=== PATIENT | female | born 1990 | race Caucasian/White ===

== ENCOUNTER 2018-12-01 13:00 | Inpatient (IN) ==
[2018-12-08] MEDS ORDERED: LR 1,000 ML ONE (09:49)
[2018-12-08] MEDS ORDERED: VALIUM ONE (10:11)
[2018-12-08] MEDS ORDERED: PEPCID ONE (10:11)
[2018-12-08] MEDS ORDERED: REGLAN ONE (10:11)
[2018-12-08] MEDS ORDERED: ZOFRAN ONE ×2 (10:12→14:08)
[2018-12-08] MEDS ORDERED: DIPRIVAN 1% ONE (12:59)
[2018-12-08] MEDS ORDERED: FENTANYL ONE (13:00)
[2018-12-08] MEDS ORDERED: XYLOCAINE-MPF 2% ONE (13:06)
[2018-12-08] MEDS ORDERED: VANCOMYCIN ONE (13:08)
[2018-12-08] MEDS ORDERED: DECADRON ONE (14:08)
[2018-12-08] MEDS ORDERED: KEFZOL 2 GM/D5W 2 GM/50 ML IVPB ONE (14:16)
[2018-12-08] MEDS ORDERED: DILAUDID ONE (15:08)
[2018-12-08] MEDS ORDERED: ZOFRAN IV PRN (16:09)
[2018-12-08] MEDS: DILAUDID ONE ×2 (16:10→16:20)
[2018-12-08] MEDS: PHENERGAN ONE ×3 (16:10→16:28)
[2018-12-08] MEDS ORDERED: VANCOMYCIN IV PER PHARMACY MISC SCH (16:15)
[2018-12-08] MEDS ORDERED: NS 1,000 ML ONE (16:24)
--- NOTE | 2018-12-08 16:38 | OPERATIVE NOTE ---
PROCEDURE DATE: 12/08/2018 PREOPERATIVE DIAGNOSES: 1. Right ankle infection. 2. Right tibia osteomyelitis. 3. Right talus osteomyelitis. 4. Right tibia hardware-related pain. 5. Right fibula hardware-related pain. POSTOPERATIVE DIAGNOSES: 1. Right ankle infection. 2. Right tibia osteomyelitis. 3. Right talus osteomyelitis. 4. Right tibia hardware-related pain. 5. Right fibula hardware-related pain. PROCEDURES: 1. Right tibia hardware removal. 2. Right fibula hardware removal. 3. Right partial excision, tibia. 4. Right partial excision, talus. 5. Right irrigation and debridement, ankle. SURGEON: Nahum Michael MD TECHNICIAN PREVENTATIVE MEDICINE: ALESSANDRA Chu, who was an integral part of the case, helping with all aspects of the case. She helped to increase our OR efficiency greatly. ANESTHESIA: General with LMA. TOURNIQUET TIME: About an hour and a half. IMPLANTS: Antibiotic bone cement with vancomycin and tobramycin. EXPLANTS: Fibular plate and screws and tibial pilon plate and screws. DISPOSITION: To PACU, hemodynamically stable. INDICATION FOR PROCEDURE: Ms Heath is a 28-year-old female, whom I have seen in clinic for evaluation of this right ankle. She has had a surgery many months ago. Unfortunately, she has been dealing with a draining wound off and on for a very long time. Her x-ray showed a lot of osteomyelitis of the distal tibia, and a lot of that distal tibia was just gone and had eaten away even a lot of the talus. Some of the screws were actually sitting on the top of the calcaneus. I discussed with her about operative intervention and amputation. We elected for operative intervention to go in and try to clean everything out as best we can and do a cement spacer. I went over with her the procedure, risks, benefits, and potential complications. She expressed understanding and wished to proceed. DESCRIPTION OF THE PROCEDURE: Ms Heath was identified in the preoperative holding area. Right ankle was marked as the correct surgical site. She was then wheeled to the operating room and placed supine on the operating table. All bony prominences were well padded. She was induced under general anesthesia. LMA was placed. Tourniquet was placed to the right thigh. Right lower extremity was then prepped with chlorhexidine gluconate scrub and then ChloraPrep, and draped in normal sterile fashion. Surgical pause was performed. We identified the correct patient, the correct side, and the correct procedure. Preoperative antibiotics were held until cultures were obtained. Tourniquet was inflated to 300 mmHg without using any Esmarch for elevation. We started on the lateral side. The fibula seemed laboratory equipment cleaner than the tibia on radiographs and there were no wounds of the fibula so I ended up making an incision through her previous incision. Dissection was carried down all the way to the plate and screws. We remove 3 screws proximal and 3 screws distally and then removed the plate. I did not see any purulence at all through there, nothing looked infected, and there was no eroding of the bone. After I got the plate and screws out, I then cleaned up some of the bone with a rongeur and a rasp and smoothed everything down. I then irrigated everything copiously with normal saline on that side, even though it did not look infected. I then closed in layered fashion with 0 Vicryl for the deep layer, 2-0 Vicryl for the subcutaneous, and nylon on the skin. After we got that completely closed, then we came to the ankle. I made an incision over the anterior aspect of the ankle and dissection was carried down. There was a ton of scar tissue all through there. We were able to find our tibialis anterior tendon and preserved it. We came all the way down to the plate. We identified the plate. All of the screws were extremely loose and we pulled all of those out. There really was not much distal tibia at all left, maybe just a little bit of medial malleolus. We then came up proximally where there was a draining wound. When we had opened up by the plate distally, there was some purulence there and we cultured that area down by the ankle. We then opened up proximally where there was a draining wound anteriorly, and we ellipsed out that draining wound and there was purulence down on the plate there as well and we cultured the mid tibia also. We then gave IV antibiotics with 2 g IV Ancef. I then took the screws out proximally on the plate, confirmed we had all the screws out distally, and then I was able to take the plate out through that ankle incision. Where the plate was on the tibia distally, it had all eroded into the middle of the bone. I ended up using a very large curette and scraped the bone until we got back to normal-appearing bone and that was all around the shaft and then came up proximally in the shaft and scraped that bone as well and then got all the fibrous and infected-looking tissue out until we got back to nice healthy-appearing tissue. We came down to the ankle and then I started working distally and there was a lot of what looked like infected bone distally, which was the talus. I ended debriding it until there was only just a shell of bone left above the calcaneus so we ended up taking out most all of the talus then, as unfortunately a lot of it was infected. I then scraped the soft tissues as well to get rid of any infection that may be there. After we had an extremely thorough debridement of the soft tissue and after we did a partial excision of the tibia and saucerized it, we did a partial excision of the talus and just left a little bit of it. We then irrigated copiously with normal saline and irrigated all of that out both proximally and distally, and in the end, the soft tissues actually looked really good. There was unfortunately just a ton of bone missing, which we expected from the beginning, unfortunately. We then mixed up some bone cement with vancomycin and tobramycin. We packed some of it up the lateral defect up the shaft and then down where the ankle joint used to be and where the talus used to be. She was pretty short still overall. I was not really able to get her up to neutral dorsiflexion secondary to her fibula being so long. I did not wish to go ahead and osteotomize the fibula now because we could if we can get her infection completely cleared, then we may be able to use her fibula later for autograft if we end up having to do some type of big hindfoot fusion so we ended up keeping her fibula and not cutting it at all, even though her foot still was pretty short. I did leave her in just a little bit of plantar flexion. We then closed the wounds with Maxon for the deep layer and the superficial layer and then nylon on the skin. Final images were taken, which showed that we had good position of our antibiotic spacer. Adaptic, 4x4s, ABD, Sof-Rol, and posterior splint were applied. Tourniquet was let down. She had good capillary refill return to the toes. She was then awakened from general anesthesia, moved to her own bed, and taken to the PACU in stable condition. Postoperatively, she will be nonweightbearing right lower extremity. She will be admitted to the hospital. We will get Infectious Disease involved. We will follow her cultures and then once the cultures come back with something, then we will tailor antibiotics to that. She will more than likely need a PICC line as well. cc: Nahum Michael MD
[2018-12-08] MEDS ORDERED: NS 1,000 ML IV SCH (17:00)
[2018-12-08] MEDS: MORPHINE IV PRN ×3 (17:12→21:07)
[2018-12-08] MEDS: AZACTAM 1 GM in NS 50 ML IV SCH (18:51)
[2018-12-08] MEDS: NICODERM PATCH TD SCH (18:52)
[2018-12-08] MEDS: VANCOMYCIN 1,300 MG in NS 250 ML IV SCH (21:09)
[2018-12-08] MEDS: OXY IR PO PRN (23:03)
[2018-12-09] MEDS: MORPHINE IV PRN ×8 (00:11→22:13)
[2018-12-09] MEDS: OXY IR PO PRN ×6 (02:45→22:41)
[2018-12-09] MEDS: AZACTAM 1 GM in NS 50 ML IV SCH (02:45)
[2018-12-09] MEDS: LOVENOX SUBQ SCH (05:50)
--- NOTE | 2018-12-09 08:16 | PROGRESS NOTE ---
DATE: 12/09/2018 SUBJECTIVE: Ms. Heath is lying in bed this morning. She had a little bit of a rough night last night, only got about 2 hours of sleep secondary to pain. OBJECTIVE: Right lower extremity exam: The limb is clean, dry, and intact. She is able to move the toes well, and she actually has good sensation to light touch to the toes. ASSESSMENT: Status post hardware removal, tibia and fibula, and partial excision, tibia and talus. PLAN: I had a long talk with Ms. Heath and her significant other who is in the room with her. I discussed with her about infection and how much bone we had to take out, and it is going to be an uphill vieira to get that infection eradicated. I specifically went over with her things that she can do to help out a lot with her overall health. Number one is going to be smoking cessation. I know it is not going to be easy for her, but that is the goal--is no nicotine at all. Secondly are her lifestyle choices. 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 I even discussed with her about her dentition. Right now, she does not have any dental insurance, so she really cannot get someone to help her out with her teeth. From the ankle standpoint, it will be an uphill vieira. We are going to do IV antibiotics until our cultures come back and we will tailor the antibiotics then. We are consulting Dr. Tripp on her, as well, for antibiotic recommendations. She will be in here over the next few days while we get all this set up. Immigration Judge will be involved, as well, and she will be nonweightbearing, right lower extremity. cc: Nahum Michael MD
[2018-12-09 08:51] LABS: AGAP 14; BUN 3 mg/dL (8-22); CALCIUM 8.5 mg/dL (8.8-10.2); CHLORIDE 98 mmol/L (98-107); COSMO 273; CREATININE 0.5 mg/dL (0.5-0.9); ESTIMATED GFR > 60; GLUCOSE 108 mg/dL (70-104); POTASSIUM 4.4 mmol/L (3.5-5.1); SODIUM 138 mmol/L (136-145); TCO2 26 mmol/L (25-35)
[2018-12-09 09:15] LABS: INR 0.99; PROTIME 13.9 Seconds (11.0-16.0)
[2018-12-09] MEDS: NICODERM PATCH TD SCH ×2 (09:28→19:00)
[2018-12-09] MEDS: PERIDEX MT SCH ×2 (09:28→20:08)
[2018-12-09] MEDS: VANCOMYCIN 1,300 MG in NS 250 ML IV SCH ×2 (09:45→20:07)
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
[2018-12-09 10:48] LABS: MPV 10.7 FL (7.4-10.4)
[2018-12-09] MEDS ORDERED: NS 250 ML ONE (10:51)
[2018-12-10] MEDS: MORPHINE IV PRN ×9 (00:07→22:37)
[2018-12-10] MEDS: OXY IR PO PRN ×7 (01:21→22:01)
[2018-12-10] MEDS: LOVENOX SUBQ SCH (05:31)
[2018-12-10 06:36] LABS: BASO# 0.01 X1000 (0.0-0.2); BASO% 0.1 % (0.0-0.8); HEMATOCRIT 33.8 % (37.0-47.0); HEMOGLOBIN 10.8 g/dL (12.0-16.0); LYMPH# 2.65 X1000 (1.2-3.4); LYMPH% 39.5 % (20.5-51.1); MCH 27.1 PG (27-31); MCV 84.7 FL (81-99); MONO# 0.92 X1000 (0.11-0.59); MONO% 13.7 % (1.7-9.3); MPV 11.7 FL (7.4-10.4); NEUT# 2.93 X1000 (1.4-6.5); NEUT% 43.7 % (42.2-75.2); PLT 205 X1000 (130-400); RBC 3.99 XMIL (4.2-5.4); RDW 15.2 % (11.5-14.5); WBC 6.71 X1000 (4.8-10.8)
[2018-12-10] MEDS: PERIDEX MT SCH ×2 (09:06→22:01)
[2018-12-10] MEDS: NICODERM PATCH TD SCH ×2 (09:07→10:07)
[2018-12-10] MEDS: VANCOMYCIN 1,300 MG in NS 250 ML IV SCH ×2 (10:09→22:01)
--- NOTE | 2018-12-10 13:57 | PROGRESS NOTE ---
DATE: 12/10/2018 SUBJECTIVE: Ms. Heath still has a little bit of difficulty sleeping and with pain. They were able to put a PICC line yesterday. OBJECTIVE: Right lower extremity exam, her dressing is clean, dry, and intact. She is able to move the toes a little better and she has a little better sensation to the toes as well. ASSESSMENT: Status post right hardware removal, tibia and fibula and partial excision tibia and talus. PLAN: Ms. Heath will continue to be on IV antibiotics. We will make sure all her cultures are completely finalized before setting everything up permanently for outpatient services. She is nonweightbearing right lower extremity but I do want her up and moving and getting around it. Will continue to follow, I want her elevating when she is in the bed. cc: Nahum Michael MD
[2018-12-11] MEDS: MORPHINE IV PRN ×8 (00:57→21:20)
[2018-12-11] MEDS: OXY IR PO PRN ×7 (02:19→22:51)
[2018-12-11] MEDS: LOVENOX SUBQ SCH (06:45)
[2018-12-11] MEDS: PERIDEX MT SCH ×2 (08:34→20:17)
[2018-12-11] MEDS: NICODERM PATCH TD SCH (08:34)
[2018-12-11] MEDS: VANCOMYCIN 1,750 MG in NS 250 ML IV SCH ×2 (09:40→20:17)
[2018-12-11] MEDS: BENADRYL PO PRN ×2 (10:33→20:17)
--- NOTE | 2018-12-11 12:15 | PROGRESS NOTE ---
DATE: 12/11/2018 SUBJECTIVE: Ms. Heath is lying in bed this morning. Pain seems better well controlled. She is getting some itching. OBJECTIVE: Extremities: Right lower extremity exam, she can dorsiflex and plantar flex her toes well. She has good sensation to light touch to the toes. The splint is clean, dry and intact. ASSESSMENT: Status post right hardware removal distal tibia and fibula, and partial excision tibia and talus. PLAN: I ordered some Benadryl for Ivana. She is still getting IV antibiotics. Locomotive Rep[employer] is to start seeing her in the morning to get everything setup for outpatient antibiotics. She did grow Staphylococcus aureus which was oxacillin-sensitive, so Dr. Tripp and the Infectious Disease Team will be making final recommendations probably tomorrow morning. cc: Nahum Michael MD
[2018-12-11] MEDS: SENOKOT PO PRN (20:17)
[2018-12-12] MEDS: MORPHINE IV PRN ×8 (00:01→21:14)
[2018-12-12] MEDS: OXY IR PO PRN ×6 (01:56→20:49)
[2018-12-12] MEDS: BENADRYL PO PRN ×4 (01:59→21:14)
[2018-12-12] MEDS: LOVENOX SUBQ SCH (05:18)
[2018-12-12] MEDS: PERIDEX MT SCH (08:36)
[2018-12-12] MEDS: NICODERM PATCH TD SCH (08:36)
[2018-12-12] MEDS: VANCOMYCIN 1,750 MG in NS 250 ML IV SCH (09:54)
[2018-12-12] MEDS: SENOKOT PO PRN (16:48)
--- NOTE | 2018-12-12 18:10 | PROGRESS NOTE ---
DATE: 12/12/2018 SUBJECTIVE: Ms. Heath lying in bed this evening overall feeling well. Not really complaining of a lot of pain. She is actually doing better overall. She has been up and moving. OBJECTIVE: Right lower extremity exam, splint is clean, dry, and intact. She is able to move her toes well. She has good sensation to light touch to the toes. ASSESSMENT: Status post right partial excision tibia and talus and hardware removal tibia and fibula. PLAN: Will try to get everything set up for Mr. Heath to go home tomorrow. Will get older adult social work specialist involved, get Dr. Tripp' final recommendations for antibiotic and hopefully be able to have discharge tomorrow. She is nonweightbearing right lower extremity and if she discharge tomorrow then I will see her this Wednesday in clinic. cc: Nahum Michael MD
[2018-12-12] MEDS: KEFZOL 2 GM/D5W 2 GM/50 ML IVPB IV SCH (19:06)
[2018-12-12] MEDS ORDERED: NS 500 ML ONE (19:24)
--- NOTE | 2018-12-12 20:01 | INFECTIOUS DISEASE PROGRESS NO ---
DATE: 12/12/2018 PRESENT ILLNESS: Ms. Heath has an oxacillin sensitive Staph aureus osteomyelitis of the right ankle. She is status post removal of hardware with a right partial excision to the tibia and talus with irrigation and debridement of the right ankle. MEDICATIONS: Today is day 4 of IV vancomycin per pharmacy dosing. PHYSICAL EXAM: Vital Signs: Temperature is 98.4 degrees, pulse rate 72, respiratory rate 18, blood pressure 122/65, O2 saturation 99% on room air. General: This is a chronically ill- appearing young female. She is sitting up in bed currently in no acute distress. HEENT: Atraumatic, normocephalic. Dentition is extremely poor. Oral mucous membranes are pink and moist. Conjunctivae are pink. Neck: Supple. Trachea is midline. Cardiovascular: Heart rate is regular. Radial and left pedal pulses are palpable bilaterally. Integumentary: She has an Julian wrap splint to the right lower extremity. She is able to wiggle her toes on the right side. Respiratory: Lung sounds are clear to auscultation bilaterally. Abdomen: Soft , round, nontender. Bowel sounds are active. There is a left upper arm PICC line. The site is without edema, erythema or drainage. Neurologic: She is awake, alert, oriented and able to move around in the bed independently. LABORATORY AND X-RAY: None available today. ASSESSMENT AND PLAN: Ms. Heath has an osteomyelitis of the right ankle and is status post hardware removal with irrigation and debridement and partial excisions. She has been receiving IV vancomycin which we will discontinue today, since her Staph is oxacillin- sensitive. We will start her on Ancef 2 g IV every 8 hours. She does have a history of a previous anaphylactic-type reaction to penicillin IV, however she has taken Keflex and amoxicillin without any difficulty by mouth. Because of her previous response, we will go ahead and order the medication to be given under close watch of the nurse with a crash cart nearby. The patient has an extensive history of methamphetamine abuse including intravenously. We have talked to her extensively about this and about how she is not to use the PICC line for any IV drugs. She assures us that she has been 5 months clean and does not have any intention of using the IV for anything other than her antibiotics. She does understand that if she does use the IV inappropriately then we will have to discontinue her treatment. The previous plans have been discussed with and recommended by Dr. Tripp. COMORBIDITIES: Include history of drug abuse with poor dentition. Dictated by ALESSANDRA Desai for Vaughn Tripp MD This chart was documented by, ALESSANDRA Desai and accurately reflects the services performed, treatment plan and medical decisions as attested by the providers signature Vaughn Tripp MD. cc: MD Nahum De La Vega MD [facility]ITAL[facility]
[2018-12-12] MEDS: NS 500 ML IV SCH (21:15)
[2018-12-12] MEDS ORDERED: VANCOMYCIN 2 GM in NS 500 ML IV SCH (22:00)
[2018-12-12] MEDS: CELEBREX PO SCH (22:52)
[2018-12-12] MEDS: PERCOCET-5 PO PRN (22:52)
[2018-12-12] MEDS: VANCOMYCIN 2 GM in NS 500 ML IV SCH (22:56)
[2018-12-13] MEDS: MORPHINE IV PRN ×2 (00:10→06:07)
[2018-12-13] MEDS: PERCOCET-5 PO PRN ×4 (03:30→15:11)
[2018-12-13] MEDS: BENADRYL PO PRN ×2 (03:31→09:28)
[2018-12-13] MEDS: KEFZOL 2 GM/D5W 2 GM/50 ML IVPB IV SCH ×2 (03:31→14:06)
[2018-12-13] MEDS: LOVENOX SUBQ SCH (06:07)
[2018-12-13 08:07] VITALS: BP 125/81
--- NOTE | 2018-12-13 08:10 | PROGRESS NOTE ---
DATE: 12/13/2018 SUBJECTIVE: Ms. Heath is lying in bed this morning. Overall pain is controlled. They did change her medicine around and went to Percocets instead of the OxyIR. OBJECTIVE: Right lower extremity exam: Dressing is clean, dry, and intact. She is able to move the toes well. ASSESSMENT: Status post right partial excision of tibia and talus, and hardware removal of tibia- fibula. PLAN: Ms. Heath to be discharged home today. We did go over with her specifically about her PICC line. She does have a history of IV drug abuse, and so we discussed very frankly with her about having a PICC line and having a history of IV drug abuse. She has already decreased her smoking and is planning on trying to quit smoking a together. It sounds like she has got her family rallied around her now as well and in support. So, she will be discharged today and I will see her on Wednesday of this week and we will take her out of the splint, take a look at her incisions and then go into a regular cast. She is nonweightbearing right lower extremity. cc: Nahum Michael MD
--- NOTE | 2018-12-13 08:18 | DISCHARGE SUMMARY ---
ADMISSION DATE: 12/08/2018 DISCHARGE DATE: ADMITTING DIAGNOSES: 1. Right ankle infection. 2. Right tibial osteomyelitis. 3. Right talus osteomyelitis. DISCHARGE DIAGNOSES: 1. Right ankle infection. 2. Right tibial osteomyelitis. 3. Right talus osteomyelitis. PROCEDURES: On 12/08/2018, Dr. Michael performed a right tibia and fibula hardware removal, a right partial excision of the tibia, a right partial excision of the talus, and right irrigation and debridement of the ankle. HOSPITAL COURSE: Ms. Heath is a 28-year-old female whom Dr. Michael had been following in the clinic for the right ankle. She had surgery several months ago. Unfortunately, she developed a draining wound on and off. She did have multiple hospital stays. X-ray showed osteomyelitis of the distal tibia and that part of the tibia was actually completely gone. Dr. Michael did discuss with her operative intervention and discussed amputation. The patient elected for operative intervention for irrigation, debridement, and placement of a cement spacer. She was taken to the operating room where satisfactory anesthesia was obtained. She tolerated the procedure well and was transferred to the recovery room. After satisfactory recovery, she was transferred to [address] [place] [address]. She was initially started on broad-spectrum antibiotics. Infectious disease was consulted and they adjusted her IV antibiotics accordingly. She did grow out Staphylococcus aureus from her cultures in the OR. Infectious disease started her on Kefzol IV every 8 hours. She has had an uneventful postoperative course. She is nonweightbearing to this right lower extremity. She is in a posterior splint. Her current laboratory data, her white count is 6.71, hemoglobin and hematocrit are 10.8 and 33.8, her platelet count is 205,000. Her BUN and creatinine are 3 and 0.5. Her last vital signs, temperature is 98.4 degrees, pulse 60, respirations 12, blood pressure 117/58. She is 98% on room air. At this time, she is ready for discharge. DISCHARGE MEDICATIONS: Percocet 5 mg p.o. every 4 to 6 hours as needed for pain, Celebrex 200 mg p.o. b.i.d., aspirin 325 mg p.o. b.i.d., Kefzol 2 g every 8 hours IV. DISCHARGE DISPOSITION: Ms. Heath will be discharged home to self-care. We are going to work on getting home health established to assist her with her IV antibiotics. She does have a PICC line. Ms. Heath does have a history of drug abuse. I have discussed with her that this is an easy access point and it will be easy to revert back to drug use, especially with a PICC line. We did discuss contaminating the PICC line and how that can put her at risk for sepsis or another infection. She understands and she has really expressed desire to change her ways and really work towards getting better. We also discussed smoking cessation to help recovery and heal this right ankle. We are going to do Percocet for pain control. We are going to do aspirin for DVT prophylaxis. We did discuss signs and symptoms of postoperative infection, which she has to be looking for. Again, she will be nonweightbearing to this right lower extremity. We are going to see her in clinic this coming Wednesday. We are going to take everything down and take a look at all her incisions. She will be nonweightbearing for likely 2 months. We will work on establishing a time off the IV antibiotics where the infection does not come back and see about doing a permanent fixation at that time. Dictated by ALESSANDRA Chu for Nahum Michael MD cc: ALESSANDRA Chu MD
[2018-12-13] MEDS: CELEBREX PO SCH (09:28)
[2018-12-13] MEDS: NICODERM PATCH TD SCH (09:28)
[2018-12-13] MEDS: PERIDEX MT SCH (09:28)
[2018-12-13] MEDS: NS 500 ML IV SCH (09:32)
[2018-12-13] MEDS: VANCOMYCIN 2 GM in NS 500 ML IV SCH (10:43)
--- NOTE | 2018-12-13 11:38 | INFECTIOUS DISEASE PROGRESS NO ---
DATE: 12/13/2018 The patient is going to be discharged today on Ancef 2 g IV every 8 hours, which will be supplied by [facility]. The patient will be treated for 6 weeks. I have requested the patient to have an appointment in my office at 3 weeks and then again, we will see her at 6 weeks at which time we will stop her antibiotics and remove her PICC. All the metal has been removed from the patient's foot so I do not think she will need to be put on a long-term oral antibiotic after the IV antibiotic. cc: MD Nahum De La Vega MD
== END 2018-12-13 15:21 | disposition home health service (06) | DRG 493 ==
LOC: EDSTATUS 12-08 07:00 → SURHOLD 12-08 09:06 → 4N 12-08 14:33
PROVIDERS: ADMIT Orthopaedic Surgery; ATTEND Orthopaedic Surgery
CPT/HCPCS: 36569; 76000; 80048; 80202; 81025; 82565; 85025; 85049; 85610; 85651; 86140; 87070; 87075; 87077; 87186; 87205; 88300; 94761; 94799; 97116; 97161; A9270; J0690; J1100; J1170; J1650; J2270; J2405; J2550; J3010; J3370; J7030; J7040; J7050; J7120; S0073